=== PATIENT | male | born 2005 | race Caucasian/White ===

== ENCOUNTER 2024-10-08 14:38 | Emergency (ER) | payer BC, MEDICAID, SELFPAY ==
--- OUTSIDE RECORDS SUMMARY | 2024-10-08 14:46 | XMS_ITS | Clinical Summary ---
Author Organization [facility] Address [address] [place] [address] Care Team Providers Care Outreach Representative Name Role Phone Dustin Gooden MD Primary Care Provider [phone] [facility],non-owned Affiliates and Associated Physician Practices is amultiple site organization consisting of ambulatory clinics and hospital sitesin [place], [place], [place] and [place]. This disclosure is being madepursuant to the Care Everywhere program and may not contain all information available regarding this patient. Last updated 18.[facility] Allergies No known active allergies Medications * Be aware that medications may not be up to date on this document. Alwaysverify current medications with the patient. 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 Gender Identity Not on file Sexual Orientation Not on file Last Filed Vital Signs Vital Sign Reading Time Taken Comments Blood Pressure 102/60 01/16/2019 6:32 PM CDT Pulse 67 01/16/2019 6:32 PM CDT Temperature 36.9 C (98.4 F) 01/16/2019 6:32 PM CDT Respiratory Rate - - Oxygen Saturation 99% 01/16/2019 6:32 PM CDT Inhaled Oxygen Concentration - - Weight 65.3 kg (144 lb) 01/16/2019 6:32 PM CDT Height - - Body Mass Index - - Plan of Treatment Health Maintenance Due Date Last Done Comments HIV SCREENING 2018 HPV VACCINE (1 - Male 3-dose series) 2018 MENINGOCOCCAL (Group B) VACC INE SHARED DECISION-MAKING (1 of 2 - Standard) 2019 HEPATITIS C SCREENING 01/04/2021 DTAP/TDAP/TD VACCINES (1 - Tdap) 2022 HEPATITIS B VACCINE (1 of 3 - 19+ 3-dose series) 2022 COVID-19 VACCINE (1 - 2023-2 5 season) 2024 DEPRESSION SCREENING 05/08/2024 INFLUENZA VACCINE (Season Ended) 2025 ZOSTER VACCINE (1 of 2) 2053 HIB VACCINE Aged Out No longer eligi ble based on patient's age to complete this topic MENINGOCOCCAL GROUPS A/C/Y/W VACCINE Aged Out No longer eligible b ased on patient's age to complete this topic PNEUMOCOCCAL VACCINE Aged Out No long er eligible based on patient's age to complete this topic Insurance [facility] Care Teams Outreach Representative Relationship Specialty Start Date End Date Dustin Gooden MD [address] [place], [place] [id number] PCP - General Pediatrics 01/16/19
--- OUTSIDE RECORDS SUMMARY | 2024-10-08 14:46 | XMS_ITS | Referral Summary ---
Author Organization [facility] Address [address] [place] [address] Care Team Providers Care Mud Mixer Operator Name Role Phone Dustin Gooden MD Primary Care Provider Allergies No known active allergies Medications hydrOXYzine (ATARAX) 25 mg tablet Take 1 tablet (25 mg total) by mouth every 6 (six) hours Collaborating physician Moises Messer MD 20 tablet 3 Active Active Problems Problem Noted Date Diagnosed Date Acute irritant otitis externa, right 01/25/2023 Foreign body sensation in right ear canal 2022 Social History Tobacco Use Types Packs/Day Years Used Date Smoking Tobacco: Some Days Smokeless Tobacco: Never Personal Safety Answer Date Recorded Have you ever been in or are you currently in a harmful physical or emotional relationship or is someone making you feel afraid or unsafe? 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 Gender Identity Not on file Sexual Orientation Not on file Last Filed Vital Signs Vital Sign Reading Time Taken Comments Blood Pressure 131/99 05/04/2023 12:27 PM WASTE MANAGEMENT RECYCLING TECHNICIAN Pulse 101 05/04/2023 12:27 PM WASTE MANAGEMENT RECYCLING TECHNICIAN Temperature 36.4 C (97.5 F) 05/04/2023 12:27 PM WASTE MANAGEMENT RECYCLING TECHNICIAN Respiratory Rate 16 05/04/2023 12:27 PM WASTE MANAGEMENT RECYCLING TECHNICIAN Oxygen Saturation 100% 05/04/2023 12:27 PM WASTE MANAGEMENT RECYCLING TECHNICIAN Inhaled Oxygen Concentration - - Weight 73.9 kg (163 lb) 05/04/2023 12:27 PM WASTE MANAGEMENT RECYCLING TECHNICIAN Height 182.9 cm (6') 05/04/2023 12:27 PM WASTE MANAGEMENT RECYCLING TECHNICIAN Body Mass Index 22.11 05/04/2023 12:27 PM WASTE MANAGEMENT RECYCLING TECHNICIAN Plan of Treatment Not on file Insurance [facility] Care Teams Mud Mixer Operator Relationship Specialty Start Date End Date Dustin Gooden MD PCP - General 07/18/19
--- OUTSIDE RECORDS SUMMARY | 2024-10-08 14:46 | XMS_ITS | Clinical Summary ---
Author Organization [facility] Address [address] [place] [address] Care Team Providers Care Director Digital Strategy Name Role Phone Dustin Gooden MD Primary Care Provider Allergies No known active allergies Medications hydrOXYzine (ATARAX) 25 mg tablet Take 1 tablet (25 mg total) by mouth every 6 (six) hours Collaborating physician Moises Messer MD 20 tablet 3 Active Active Problems Problem Noted Date Diagnosed Date Acute irritant otitis externa, right 01/25/2023 Foreign body sensation in right ear canal 2022 Family History Medical History Relation Name Comments Diabetes Maternal Grandfather Family history of diabetes mellitus - Relation: Grandfather (Added by TW Conv) Relation Name Status Comments Maternal Grandfather Social History Tobacco Use Types Packs/Day Years [...] on file Legal Sex Male 5:22 AM CROSSING TENDER Gender Identity Not on file Sexual Orientation Not on file Obstetrics History Last Filed Vital Signs Vital Sign Reading Time Taken Comments Blood Pressure 131/99 05/04/2023 12:27 PM CROSSING TENDER Pulse 101 05/04/2023 12:27 PM CROSSING TENDER Temperature 36.4 C (97.5 F) 05/04/2023 12:27 PM CROSSING TENDER Respiratory Rate 16 05/04/2023 12:27 PM CROSSING TENDER Oxygen Saturation 100% 05/04/2023 12:27 PM CROSSING TENDER Inhaled Oxygen Concentration - - Weight 73.9 kg (163 lb) 05/04/2023 12:27 PM CROSSING TENDER Height 182.9 cm (6') 05/04/2023 12:27 PM CROSSING TENDER Body Mass Index 22.11 05/04/2023 12:27 PM CROSSING TENDER Plan of Treatment Health Maintenance Due Date Last Done Comments Depression Screening 2003 Hepatitis C Screening 2003 Pneumococcal vaccine <65 (1 of 1 - PPSV23) 2009 04/08/2004, 2003, 2003 Meningococcal B Vaccine (1 of 2 - Standard) 2019 Regular Well Visit/Exam 18-64 2021 DTaP/Tdap/Td Vaccine (7 - Td or Tdap) 05/22/2023 05/22/2013, 01/11/2008, 08/24/2004, Additional history exists Influenza Vaccine (Season Ended) 2025 02/09/2015, 05/22/2013, 03/06/2012, Additional history exists Hepatitis B Screening Completed 04/08/2004 , 2003, 2003, Additional history exists Varicella Vaccines Completed 01/11/2008, 08/24/2004 Meningococcal Vaccine Aged Out 02/09/2015 No lester rigo eligible based on patient's age to complete this topic HPV Vaccines Completed 12/06/2018, 02/09/[address] [place] [address] [place] [address] [facility] Care Teams Director Digital Strategy Relationship Specialty Start Date End Date Dustin Gooden MD PCP - General 07/18/19
--- OUTSIDE RECORDS SUMMARY | 2024-10-08 14:46 | XMS_ITS | Clinical Summary ---
Author Organization [facility] Address [address] [place] [address] Phone Care Team Providers Care Cut Out Marker Name Role Phone Unavailable Primary Care Provider Unavailabl e Social History Tobacco Use Types Packs/Day Years Used Date Smoking Tobacco: Never Assessed Sex and Gender Information Value Date Recorded Sex Assigned at Not on file Legal Sex Male 8:30 PM CDT Gender Identity Not on file Sexual Orientation Not on file Plan of Treatment Not on file
[2024-10-08 14:50] VITALS: BP 150/82; PULSE 94; RESP 16; TEMP 36.9; O2SAT 100
--- NOTE | 2024-10-08 15:35 | ED.GENADULT ---
HPI - General Adult General Chief complaint: Skin/Abscess/Foreign Body Stated complaint: Rash Source: patient Mode of arrival: ambulatory Limitations: no limitations History of Present Illness HPI narrative: Pt presents for evaluation of a rash to his extremities x 4 since yesterday. He denies any new lotions, soaps, detergents, topical products. No new medications or foods. He spent time at the [facility] the day prior to symptom onset. His daughter had a similar rash and they were in close contact with one another. He denies any infectious symptoms such as fever, sore throat. He denies any joint or muscle pain. He is not aware of any family members that have autoimmune disease. There is no associated pruritis or accompanying symptoms. He has not taken any medication to assist with his symptoms. Related Data Allergies Allergy/AdvReac Type Severity Reaction Status Date / Time No Known Allergies Allergy Verified 10/08/24 14:51 Review of Systems Review of Systems: CONSTITUTIONAL: Denies fever, chills, or sweats. EYES: Denies visual changes, redness, or discharge. ENT: Denies rhinorrhea, congestion, sore throat, or otalgia. CARDIOVASCULAR: Denies chest pain, palpitations, or edema. RESPIRATORY: Denies cough or dyspnea. GASTROINTESTINAL: Denies abdominal pain, nausea, vomiting, or diarrhea. GENITOURINARY: Denies dysuria or hematuria. SKIN:Reports rash to extremities x 4. Denies associated pruritis MUSCULOSKELETAL: Denies back pain, joint pain, or myalgia. NEUROLOGIC: Denies headache, numbness, dizziness, or weakness. PSYCHIATRIC: Denies anxiety or depression. [facility] Past Medical History Medical History No pertinent past medical history Surgical History Surgical History No pertinent past surgical history Family History Family History Mother Family history non-contributory Social History Social History Smoking status: Current every day smoker Tobacco type: e-cigarettes/vaping Alcohol intake: never Substance use: never Living arrangements: with family Gender identity (if verbalized by the patient): Male Spiritual care concerns: No Exam Narrative: GENERAL: Well-appearing, well-nourished, and in no acute distress. HEAD: Normocephalic, atraumatic. EYES: PERRLA and EOMI. ENT: Nares clear, no rhinorrhea or epistaxis. Mucous membranes moist. Oropharynx without tonsillar hypertrophy exudate or other lesions. Bilateral TMs pearly reynoso nonbulging NECK: Supple. No adenopathy or masses. No carotid bruits or JVD CHEST: Clear to auscultation. No respiratory distress. No wheezes rales or rhonchi HEART: Regular rate and rhythm. No murmur heard. Normal peripheral pulses. ABDOMEN: Soft, nontender, nondistended, normal active bowel sounds. EXTREMITIES: Normal range of motion. No edema. SKIN: There is a fine erythematous sandpaper rash to the extremities x4. NEURO: No focal deficits. Alert and oriented x3. PSYCH: Normal mood and affect. Course Course Emergency Course: This is a 19-year-old male who presented for evaluation of a rash to his extremities x 4. He does not have any associated itching. No infectious symptoms. No family history of autoimmune disease. Etiology unclear. Will discharge with prednisone. He can take Benadryl at bedtime. Follow-up with primary provider. Go to the ER for worsening symptoms. Patient in agreement with plan of care. Level of Care: Express Care Visit Vital Signs Vital signs: Vital Signs Temperature 36.9 C 10/08/24 14:50 Pulse Rate 94 10/08/24 14:50 Respiratory Rate 16 10/08/24 14:50 Blood Pressure 150/82 H 10/08/24 14:50 Pulse Oximetry 100 10/08/24 14:50 Oxygen Delivery Room Air 10/08/24 14:50 Temperature 36.9 C 10/08/24 14:50 Pulse Rate 94 10/08/24 14:50 Respiratory Rate 16 10/08/24 14:50 Blood Pressure 150/82 H 10/08/24 14:50 Pulse Oximetry 100 10/08/24 14:50 Oxygen Delivery Room Air 10/08/24 14:50 Medical Decision Making Vital Signs Vital Signs: Vital Signs Temperature 36.9 C 10/08/24 14:50 Pulse Rate 94 10/08/24 14:50 Respiratory Rate 16 10/08/24 14:50 Blood Pressure 150/82 H 10/08/24 14:50 Pulse Oximetry 100 10/08/24 14:50 Oxygen Delivery Room Air 10/08/24 14:50 Temperature 36.9 C 10/08/24 14:50 Pulse Rate 94 10/08/24 14:50 Respiratory Rate 16 10/08/24 14:50 Blood Pressure 150/82 H 10/08/24 14:50 Pulse Oximetry 100 10/08/24 14:50 Oxygen Delivery Room Air 10/08/24 14:50 Lab Data Labs: Lab Results 10/08/24 Range/Units 15:45 POC Grp A Strep Screen Negative (Negative) Discharge Plan Discharge Clinical Impression: Rash Patient Disposition: Home Condition: Stable Instructions: Antibiotic Form, Acute Rash (ED) Patient Language: Danish Prescriptions: New prednisone 20 mg tablet 40 mg PO DAILY 4 Days Qty: 8 0RF Follow-up/Referrals: Shweta Lawson DO [Physician] - Time of Disposition: 16:24
[2024-10-08 15:47] LABS: EDSTREPNEGPOS1 Negative (Negative)
== END 2024-10-08 16:29 | disposition home or self-care (01) ==
PROVIDERS: Emergency Provider Nurse Practitioner
DX: R21 Rash and other nonspecific skin eruption (principal); F17.290 Nicotine dependence, other tobacco product, uncomplicated
CPT/HCPCS: 87081; 87880; 99203; G0463